=== PATIENT | female | born 1945 | race Caucasian/White ===

== ENCOUNTER → 2019-06-19 14:32 | Outpatient (CLI) | payer MEDICARE, SELFPAY ==
--- NOTE | ~2019-06-19 | MMUS_ITS ---
EXAMINATION: MM diagnostic isaías LT w mary lou, US breast LT limited HISTORY: Six-month follow-up for probably benign left breast mass TECHNIQUE: Craniocaudal, mediolateral, and mediolateral oblique 3-D tomosynthesis images of the left breast were performed and synthetic 2-D images were generated. CAD analysis was submitted and interpr eted. High resolution limited left breast ultrasound was performed. COMPARISON: 01/18/2019, 11/28/2018, 11/21/2018, 11/15/2017 BREAST PARENCHYMAL COMPOSITION: The breasts are almost entirely fatty. FINDINGS: MAMMOGRAPHIC FINDINGS: No persistent left breast mass is identified on today's examination. Scattered benign-appearing calci fications are present. There is no evidence of suspicious mass, calcification, or architectural disto rtion to suggest malignancy. There has been no suspicious interval change. ULTRASOUND: There is no evidence of focal abnormal solid or cystic lesion in the vicinity of the previously descr ibed ultrasound findings at the 12:00 location 7 cm from the nipple or the 3:00 location 15 cm from t he nipple. IMPRESSION: 1. No suspicious mammographic or sonographic findings. 2. Recommend routine screening mammography. BI-RADS Category 2: Benign finding(s). Reviewed, dictated and finalized at location A. IMPRESSION: 1. No suspicious mammographic or sonographic findings. 2. Recommend routine screening mammography. BI-RADS Category 2: Benign finding(s).
== END ==
PROVIDERS: PCP Family Medicine; Visit Provider Obstetrics & Gynecology
DX: R92.8 Other abnormal and inconclusive findings on diagnostic imaging of breast (principal)
CPT/HCPCS: 76642; 77061; 77065; G0279

== ENCOUNTER 2019-08-22 06:11 | Outpatient (CLI) | payer MEDICARE, SELFPAY ==
[2019-08-23 13:37] LABS: SARS-CoV-2 RNA PCR Negative
== END 2019-08-22 06:12 | disposition home or self-care (01) ==
LOC: ANHCOVIDDT 06:12
PROVIDERS: PCP Family Medicine; Visit Provider Internal Medicine Gastroenterology
DX: Z01.818 Encounter for other preprocedural examination (principal); Z11.59 Encounter for screening for other viral diseases
CPT/HCPCS: 87635; C9803; U0003

== ENCOUNTER 2019-08-24 02:32 | Day surgery (SDC) | payer MEDICARE, SELFPAY ==
[2019-08-21 10:04] VITALS: BMI 42.7
[2019-08-24 07:57] VITALS: BP 135/64; PULSE 84; RESP 18; TEMP 36.6; O2SAT 99; BMI 42.7
[2019-08-24] MEDS: LACTATED RINGERS 1,000 ML 150 ML IV CONT (08:14)
--- NOTE | 2019-08-24 08:22 | WPDANESEPPF ---
Anes - Initial Pre Proc Eval Procedure: Operation Date: 08/24/19 08:30 Proposed Procedures p Colonoscopy - Juan Modi MD Date/Time: 08/24/19 08:22 Surgeon: Juan Modi MD Pre Op Diagnosis: diarrhea, abdominal pain Patient Data Age: 73 Gender: F Height: 5 ft 6 in Weight: 120 kg Last Vital Signs Temp 36.6 C 08/24/19 07:57 Pulse 84 08/24/19 07:57 Resp 18 08/24/19 07:57 BP 135/64 08/24/19 07:57 Pulse Ox 99 08/24/19 07:57 Allergies Allergy/AdvReac Type Severity Reaction Status Date / Time No Known Allergies Allergy Unverified 08/24/19 07:51 Home Medications Medication Instructions Recorded Confirmed Type levetiracetam 500 mg tablet 500 mg PO Q12H 06/19/19 08/24/19 History divalproex 250 mg tablet,delayed 250 mg PO DAILY #90 tablet 06/26/19 08/24/19 Rx release escitalopram oxalate 20 mg tablet 20 mg PO DAILY #90 tablet 06/26/19 08/24/19 Rx levothyroxine 88 mcg tablet 88 mcg PO DAILY #90 tablet 06/26/19 08/24/19 Rx simvastatin 40 mg tablet 40 mg PO DAILY #90 tablet 06/26/19 08/24/19 Rx Patient hx anesthesia problems: none Family hx anesthesia problems: none PMFSH Past Medical History Medical History Chronic diarrhea CKD (chronic kidney disease), stage III Depression HLD (hyperlipidemia) Hypothyroidism Macular degeneration of both eyes Seizure disorder Social History Social History Gender identity (if verbalized by the patient): Female Anes - Eval Final PreProcedure Day of Procedure 08/24/19 08:22 Patient weight: morbidly obese Heart: regular rate and rhythm Lungs: clear to auscultation Airway: Mallampati scale class II Neurological: alert and oriented Last oral intake: >/= 8 hours ASA classification: III Emergent: no Anesthesia type and monitoring: general GIVS and standard monitoring Informed Consent: The patient's anesthetic plan and its attendant risks and benefits were discussed with the patient/family/POA. Questions were solicited and answers provided to the satisfaction of the patient/family/POA.
--- NOTE | 2019-08-24 08:46 | WPDGICN ---
Assessment and Plan Assessment and plan (1) Chronic diarrhea: Code(s): K52.9 - Noninfective gastroenteritis and colitis, unspecified Status: Acute Assessment and Plan: Chronic ongoing diarrhea. Somewhat suspicious for irritable bowel syndrome. Workup to date including cultures an IBD serology is negative. Plan is to try fiber is a bulk agent. Biopsy of the colon will be obtained during endoscopy to exclude microscopic colitis further recommendations may be given after endoscopy. (2) Depression: Code(s): F32.9 - Major depressive disorder, single episode, unspecified Status: Acute (3) Hypothyroidism: Code(s): E03.9 - Hypothyroidism, unspecified Status: Acute (4) Seizure disorder: Code(s): G40.909 - Epilepsy, unspecified, not intractable, without status epilepticus Status: Acute (5) CKD (chronic kidney disease), stage III: Code(s): N18.3 - Chronic kidney disease, stage 3 (moderate) Status: Acute GI Consult Note Consult date/time: 08/24/19 08:46 HPI: Roya Villaseñor is a 73 year old female Seen in evaluation at the request of Dr. Tony Duncan. Patient has history of diarrhea since March of 2019. Symptoms are worsened since June. She complains of diarrhea 3 times a day usually with poor control. She denies any bleeding. She denies any fever. She has no significant abdominal pain. Stool cultures have been negative. Including C difficile toxin. Serology for IBD was obtained found be normal as well. Patient is uncertain what medications she has been tried on in the recent past. Past medical history is significant for anxiety. Hypothyroidism. Family history noncontributory. Review of Systems Review of Systems: All systems reviewed & are unremarkable except as noted in HPI and below PMFSH Past Medical History Medical History Chronic diarrhea CKD (chronic kidney disease), stage III Depression HLD (hyperlipidemia) Hypothyroidism Macular degeneration of both eyes Seizure disorder Social History Social History Gender identity (if verbalized by the patient): Female Meds Home Medications and Allergies Home Medications Medication Instructions Recorded Confirmed Type levetiracetam 500 mg tablet 500 mg PO Q12H 06/19/19 08/24/19 History divalproex 250 mg tablet,delayed 250 mg PO DAILY #90 tablet 06/26/19 08/24/19 Rx release escitalopram oxalate 20 mg tablet 20 mg PO DAILY #90 tablet 06/26/19 08/24/19 Rx levothyroxine 88 mcg tablet 88 mcg PO DAILY #90 tablet 06/26/19 08/24/19 Rx simvastatin 40 mg tablet 40 mg PO DAILY #90 tablet 06/26/19 08/24/19 Rx Allergies Allergy/AdvReac Type Severity Reaction Status Date / Time No Known Allergies Allergy Unverified 08/24/19 07:51 Vital Signs Vital Signs - 24 hr 08/24/19 07:57 Temperature 36.6 C Pulse Rate 84 Respiratory Rate 18 Blood Pressure 135/64 Pulse Oximetry 99 Exam Narrative: Exam Narrative: Physical exam patient is alert. Vital signs are stable. HEENT exam unremarkable. Lungs are clear to auscultation and percussion. Heart is without murmur or extra sounds. Abdominal exam bowel sounds present soft nontender with no hepatosplenomegaly. Digital external rectal exam normal.
[2019-08-24 09:06] VITALS: BP 92/49; PULSE 66; RESP 23; O2SAT 98
[2019-08-24 09:16] VITALS: BP 98/54; PULSE 59; RESP 18; O2SAT 97
[2019-08-24 09:26] VITALS: BP 107/54; PULSE 60; RESP 16; O2SAT 98
== END 2019-08-24 09:52 | disposition home or self-care (01) ==
PROVIDERS: PCP Family Medicine; Visit Provider Internal Medicine Gastroenterology
PROC: 0DJD8ZZ Inspection of Lower Intestinal Tract, Via Natural or Artificial Opening Endoscopic (ICD-10-PCS; CPT 45378; principal; 2019-08-24 08:30)
DX: K52.9 Noninfective gastroenteritis and colitis, unspecified (principal); K57.30 Diverticulosis of large intestine without perforation or abscess without bleeding; K64.8 Other hemorrhoids; N18.3 Chronic kidney disease, stage 3 (moderate); G40.909 Epilepsy, unspecified, not intractable, without status epilepticus; E03.9 Hypothyroidism, unspecified; F32.9 Major depressive disorder, single episode, unspecified; E78.5 Hyperlipidemia, unspecified; H35.30 Unspecified macular degeneration; E66.01 Morbid (severe) obesity due to excess calories; Z68.41 Body mass index [BMI] 40.0-44.9, adult
CPT/HCPCS: 45380; 88305; J2704; J7120

== ENCOUNTER 2019-10-23 14:41 | Outpatient (CLI) | payer MEDICARE, SELFPAY ==
--- NOTE | ~2019-10-23 | MR_ITS ---
EXAMINATION: MR brain/brain stem wo con DATE: 10/23/2019 15:38 INDICATION: Tremors. TECHNIQUE: Magnetic resonance imaging (MRI) of the brain and brainstem was performed without intraven ous contrast. Sequences included sagittal and axial T1-weighted FSE, axial diffusion-weighted FS EPI, axial T2*-weighted GRE, axial T2-weighted FLAIR Propeller, and axial T2-weighted Propeller. Apparent diffusion coefficient (ADC) maps were created. COMPARISON: Head CT 04/07/2014 FINDINGS: There is volume loss of the cerebellum out of proportion to the rest of the brain. There ar e scattered areas of nonspecific increased T2-weighted signal intensity in the cerebral white matter. There is no intracranial hemorrhage, acute infarction, or abnormal intracranial mass lesion. The [place] tricles are normal in size. The paranasal sinuses are clear. There are likely changes of ocular lens replacement surgeries. The mastoid air cells are normal. IMPRESSION: 1. Moderate nonspecific cerebral white matter disease, which likely represents chronic small vessel i schemic disease. 2. Chronic mild cerebellar atrophy, likely secondary to chronic medication use. Reviewed, dictated and finalized at location A. IMPRESSION: 1. Moderate nonspecific cerebral white matter disease, which likely represents chronic small vessel ischemic disease. 2. Chronic mild cerebellar atrophy, likely secondary to chronic medication use.
== END 2019-10-23 14:42 | disposition home or self-care (01) ==
PROVIDERS: PCP Family Medicine; Visit Provider Psychiatry & Neurology Neurology
DX: R25.1 Tremor, unspecified (principal); R90.82 White matter disease, unspecified
CPT/HCPCS: 70551

== ENCOUNTER → 2019-11-27 10:43 | Outpatient (CLI) | payer MEDICARE, SELFPAY ==
--- NOTE | ~2019-11-27 | MM_ITS ---
EXAMINATION: MM screening isaías BI w mary lou HISTORY: Screening mammogram TECHNIQUE: Craniocaudal and mediolateral oblique 3-D tomosynthesis images were obtained and synthetic 2-D images were generated. CAD analysis was submitted and interpreted. COMPARISON: 06/29/2019 diagnostic left digital mammogram and limited left breast ultrasound 11/28/2018 diagnostic left digital mammogram and limited left breast ultrasound 11/21/2018 bilateral digital screening mammogram BREAST PARENCHYMAL COMPOSITION: FINDINGS: There are scattered bilateral benign calcifications. There is no evidence of suspicious mas s, calcification, or architectural distortion to suggest malignancy in either breast. There has been no suspicious interval change. IMPRESSION: 1. No mammographic evidence of malignancy. 2. Recommend routine screening mammography in one year. BI-RADS Category 2: Benign Reviewed, dictated and finalized at location A.
== END ==
PROVIDERS: PCP Family Medicine; Visit Provider Nurse Practitioner Obstetrics & Gynecology
DX: Z12.31 Encounter for screening mammogram for malignant neoplasm of breast (principal)
CPT/HCPCS: 77063; 77067

== ENCOUNTER 2020-06-01 14:08 | Emergency (ER) | payer MEDICARE, SELFPAY ==
--- NOTE | ~2020-06-01 | XR_ITS ---
EXAMINATION: XR chest 1V portable INDICATION: Shortness of breath TECHNIQUE: Portable AP chest at 1445 hours COMPARISON: None available FINDINGS: There are patchy opacities of the mid and lower lung zones. No pleural effusion or pneumoth orax is identified. The cardiomediastinal silhouette is normal. IMPRESSION: 1. Patchy airspace opacities of the mid and lower lung zones, consistent with atelectasis versus pneu monia. Reviewed, dictated and finalized at location A. GENCY PREPAREDNESS COORDINATOR IMPRESSION: 1. Patchy airspace opacities of the mid and lower lung zones, consistent with a telectasis versus pneumonia.
--- NOTE | ~2020-06-01 | CT_ITS ---
EXAMINATION: CTA chest PE protocol EXAM DATE: 06/01/2020 15:53 INDICATION: Shortness of breath. TECHNIQUE: Spiral CTA of the chest (pulmonary arteries) was performed with 100 cc Omnipaque 350 intr avenous contrast injection. Images were acquired during the pulmonary arterial phase. Coronal maxi mum intensity projection 3D-reconstructions were created by the technologist on dedicated workstation . Axial, coronal and sagittal reformatted images were reviewed. The dose-length product (DLP) for t his examination was 845.64 mGy-cm. The exposure was tailored according to patient size (auto mA exp osure control), and iterative reconstruction (ASIR) was used as additional dose reduction technique. Correlation is made to chest x-ray same day. FINDINGS: Pulmonary arteries are well opacified and without intraluminal filling defects. No thora cic aortic dissection. Scattered ill-defined bilateral peripheral predominant groundglass opacities, appearance is consistent with acute stage of COVID pneumonia. There are no pleural or pericardial e ffusions. Tracheobronchial tree is patent. There is no mediastinal, hilar or axillary lymphadenop athy. There is no pneumothorax. Heart normal in size. There is mild to moderate coronary arteri al calcification, arterial sclerosis. Cholelithiasis. There is thoracic spondylosis without osteobl astic or osteolytic lesions identified. IMPRESSION: 1. Small to moderate amount of scattered groundglass opacities throughout the lungs, probably COVID pneumonia. 2. No pulmonary emboli. Reviewed, dictated and finalized at location A. AL SERVICE DIRECTOR
[2020-06-01 14:11] VITALS: BP 139/86; PULSE 90; RESP 15; TEMP 36.2; O2SAT 92
[2020-06-01 14:26] VITALS: BP 118/96; PULSE 85; RESP 20; O2SAT 97
[2020-06-01 14:28] VITALS: O2SAT 97
--- NOTE | 2020-06-01 14:31 | ECG_ITS ---
Measurements Intervals [place] Rate: 85 P: 66 MO: 140 QRS: 40 QRSD: 83 T: 42 QT: 361 QTc: 429 Interpretive Statements SINUS RHYTHM EARLY PRECORDIAL R/S TRANSITION BASELINE ARTIFACT- I, III, V4 BORDERLINE ECG Electronically Signed On 06-01-2020 14:47:32 CONTACT WORKER L[employer]OGR[employer]HY by Jaime Velez D.O.
--- NOTE | 2020-06-01 14:33 | ED.SOB ---
HPI - SOB/Dyspnea General Chief Complaint: Shortness of Breath/Dyspnea Stated Complaint: cough, decreased appetite Time Seen by Provider: 06/01/20 14:19 Source: patient, RN notes reviewed and old records reviewed History of Present Illness HPI Narrative: 74-year-old female presents to emergency department for shortness of breath for the past week. Patient states she has short of breath with exertion. She states she has had this in the past before, diagnosed with bronchitis. She also states she has been feeling weak/fatigued for the past week. No fever. She does report some chills. No chest pain. No abdominal pain. No nausea or vomiting. Related Data Home Medications Medication Instructions Recorded Confirmed escitalopram oxalate 20 mg PO DAILY 06/01/20 06/01/20 Allergies Allergy/AdvReac Type Severity Reaction Status Date / Time No Known Allergies Allergy Verified 06/01/20 14:22 Review of Systems Review of Systems: Narrative: CONSTITUTIONAL: Denies fever, reports chills. EYES: Denies visual changes, redness, or discharge. ENT: Denies rhinorrhea, congestion, sore throat, or otalgia. CARDIOVASCULAR: Denies chest pain, palpitations, or edema. RESPIRATORY: Reports shortness of breath with exertion. GASTROINTESTINAL: Denies abdominal pain, nausea, vomiting, or diarrhea. GENITOURINARY: Denies dysuria or hematuria. SKIN: Denies rash or itching. MUSCULOSKELETAL: Denies back pain, joint pain, or myalgia. NEUROLOGIC: Denies headache, numbness, dizziness, or weakness. PSYCHIATRIC: Denies anxiety or depression. All systems reviewed & are unremarkable except as noted in HPI and below (ROS) [facility] Past Medical History Medical History (Updated 06/01/20 @ 16:29 by Emiliano Madrigal DO) Chronic diarrhea CKD (chronic kidney disease), stage III Depression HLD (hyperlipidemia) Hypothyroidism Macular degeneration of both eyes Seizure disorder Family History Family History Father Family history of malignant neoplasm of stomach Other Diabetes mellitus Family history of congestive heart failure Family history of kidney disease Social History Social History Smoking status: Never smoker Alcohol intake: never Gender identity (if verbalized by the patient): Female Exam Narrative: Exam Narrative: GENERAL: Well-appearing, well-nourished, and in no acute distress. HEAD: Normocephalic, atraumatic. EYES: PERRLA and EOMI. ENT: Nares clear, no rhinorrhea or epistaxis. Mucous membranes moist. NECK: Supple. CHEST: Clear to auscultation. No respiratory distress. HEART: Regular rate and rhythm. No murmur heard. Normal peripheral pulses. ABDOMEN: Soft, nontender, nondistended, normal active bowel sounds. EXTREMITIES: Normal range of motion. 1+ pitting edema lower extremities bilaterally SKIN: Warm, dry, no rash. NEURO: No focal deficits. Alert and oriented x3. PSYCH: Normal mood and affect. Course Course Emergency Course: 1620 -reevaluated patient, no new complaints. Patient satting 100% on room air. CT scan shows no PE, however concern for COVID-19 pneumonia. Counseled patient to take Tylenol and Motrin/ibuprofen as needed for pain. Follow-up with primary care physician within 1 week. Quarantine herself for another week. Return to emergency department if symptoms persist, worsen, or other concerns. Vital Signs Vital signs: Vital Signs Temperature 36.2 C L 06/01/20 14:11 Pulse Rate 90 06/01/20 14:11 Respiratory Rate 15 06/01/20 14:11 Blood Pressure 139/86 06/01/20 14:11 Pulse Oximetry 92 06/01/20 14:11 Temperature 36.2 C L 06/01/20 14:11 Pulse Rate 80 06/01/20 16:47 Respiratory Rate 20 06/01/20 16:47 Blood Pressure 120/99 H 06/01/20 16:47 Pulse Oximetry 100 06/01/20 16:47 MDM - SOB/Dyspnea Medical Records Attestation: I reviewed the patient's medical records. Lab D
[2020-06-01] MEDS: ALBUTEROL SULFATE (*SP) AEROSOL 1 PUFF 4 PUFF INHALATION (14:48)
[2020-06-01 14:50] LABS: Basophils Percent Auto 0.4 % (0.2-1.2); Eosinophils Absolute Auto 0.1 K/mm3 (0-0.3); Eosinophils Percent Auto 1.1 % (0-4.4); Hematocrit 45.4 % (37.0-47.0); Hemoglobin 15.1 g/dL (12.0-15.0); Immature Granulocyte Absolute 0.02 K/mm3 (0.00-0.031); Immature Granulocyte Percent A 0.4 % (0-0.5); Lymphocytes Absolute Auto 1.95 K/mm3 (0.9-3.2); Lymphocytes Percent Auto 34.3 % (18.3-44.2); Mean Corpuscular HGB Conc 33.3 g/dl (32-36); Mean Corpuscular Hemoglobin 29.7 pg (26-34); Mean Corpuscular Volume 89.4 fl (80-100); Mean Platelet Volume 11.3 fl (7.4-10.4); Monocytes Absolute Auto 0.4 K/mm3 (0.1-0.6); Monocytes Percent Auto 6.9 % (2.6-8.5); Neutrophils Absolute Auto 3.3 K/mm3 (1.3-6.7); Neutrophils Percent Auto 56.9 % (45.5-73.1); Platelet Count Result 196 k/mm3 (150-375); Red Blood Count 5.08 M/mm3 (4.2-5.4); Red Cell Distribution Width 13.2 % (11.5-14.5); White Blood Count 5.7 K/mm3 (4.5-10.0)
[2020-06-01 15:03] LABS: Alanine Aminotransferase 19 U/L (4-35); Alkaline Phosphatase 76 U/L (38-126); Anion Gap 8 mmol/L (8-16); Aspartate Amino Transferase 31 U/L (14-36); Bilirubin,Total 0.7 mg/dL (0.2-1.3); Blood Urea Nitrogen 32 mg/dL (7-17); Calcium 9.4 mg/dL (8.4-10.2); Carbon Dioxide 25 mmol/L (22-30); Chloride 104 mmol/L (98-107); Estimated CRCL calculation 49 ml/min; Estimated Glomerular Filt Rate 44; Glucose 114 mg/dL (65-105); Sodium 137 mmol/L (137-145)
[2020-06-01 15:13] LABS: NT Pro B Type Natriuretic Pept 75 PG/ML (5-100); Troponin I < 0.012 ng/mL (0.000-0.034)
[2020-06-01 15:18] LABS: CRP 8.1 mg/dL (<1.0); Lactate Dehydrogenase 574 U/L (313-618); Procalcitonin 0.2 ng/mL
[2020-06-01 16:18] VITALS: BP 122/105; PULSE 88; RESP 20; O2SAT 97
[2020-06-01 16:47] VITALS: BP 120/99; PULSE 80; RESP 20; O2SAT 100
[2020-06-01 22:49] LABS: SARS-CoV-2 RNA PCR Positive
== END 2020-06-01 16:50 | disposition home or self-care (01) ==
PROVIDERS: Emergency Provider Emergency Medicine; PCP Family Medicine
DX: U07.1 COVID-19 (principal); J12.82 Pneumonia due to coronavirus disease 2019; N18.30 Chronic kidney disease, stage 3 unspecified; E78.5 Hyperlipidemia, unspecified; E03.9 Hypothyroidism, unspecified; H35.30 Unspecified macular degeneration; G40.909 Epilepsy, unspecified, not intractable, without status epilepticus; R94.31 Abnormal electrocardiogram [ECG] [EKG]; R79.89 Other specified abnormal findings of blood chemistry
CPT/HCPCS: 36415; 71045; 71275; 80053; 82728; 83615; 83880; 84145; 84484; 85025; 86140; 93005; 99284; A9270; C9803; Q9967; U0003; U0005

== ENCOUNTER → 2020-12-13 14:49 | Outpatient (CLI) | payer MEDICARE, SELFPAY ==
--- NOTE | ~2020-12-13 | MM_ITS ---
EXAMINATION: MM screening isaías BI w mary lou HISTORY: Screening TECHNIQUE: Craniocaudal and mediolateral oblique 3-D tomosynthesis images were obtained and synthetic 2-D images were generated. CAD analysis was submitted and interpreted. COMPARISON: Comparison to multiple prior studies sequentially, with oldest reviewed study dated 09/2017. BREAST PARENCHYMAL COMPOSITION: The breasts are almost entirely fatty. FINDINGS: There is no evidence of suspicious mass, calcification, or architectural distortion to sugg est malignancy in either breast. There has been no suspicious interval change. IMPRESSION: 1. No mammographic evidence of malignancy. 2. Recommend routine screening mammography in one year. BI-RADS Category 1: Negative Reviewed, dictated and finalized at location A.
== END ==
PROVIDERS: Visit Provider Obstetrics & Gynecology
DX: Z12.31 Encounter for screening mammogram for malignant neoplasm of breast (principal)
CPT/HCPCS: 77063; 77067

== ENCOUNTER → 2021-12-30 13:58 | Outpatient (CLI) | payer MEDICARE, SELFPAY ==
--- NOTE | ~2021-12-30 | MM_ITS ---
EXAMINATION: MM screening [facility] BI w mary lou HISTORY: Screening mammogram TECHNIQUE: Craniocaudal and mediolateral oblique 3-D tomosynthesis images were obtained and synthetic 2-D images were generated. CAD analysis was submitted and interpreted. COMPARISON: 12/13/2020, 11/27/2019, 06/19/2019 BREAST PARENCHYMAL COMPOSITION: The breasts are almost entirely fatty. FINDINGS: Scattered benign-appearing calcifications are present. There is no suspicious mass, calcifi cation, or architectural distortion to suggest malignancy in either breast. There has been no suspici ous interval change. IMPRESSION: 1. No mammographic evidence of malignancy. 2. Recommend routine screening mammography in one year. BI-RADS Category 2: Benign finding(s). Reviewed, dictated and finalized at location A.
== END ==
PROVIDERS: PCP Family Medicine; Visit Provider Nurse Practitioner Obstetrics & Gynecology
DX: Z12.31 Encounter for screening mammogram for malignant neoplasm of breast (principal)
CPT/HCPCS: 77063; 77067

== ENCOUNTER 2022-07-28 13:11 | Outpatient (CLI) | payer MEDICARE, SELFPAY ==
--- NOTE | ~2022-07-28 | DEXA_ITS ---
Bone Density Report Name: LASHAY CULVER Age: 76 Sex: Female Ethnicity: White Date of : 1945 Indication: postmenopausal; screening for osteoporosis; height loss; seizure disorder; Referring Provider: JAZMINE CORBIN Study: Bone densitometry was performed. Exam Date: July 28, 2022 Accession number: [id number] Bone Density: Region BMD T-score Z-score Classification AP Spine(L1-L4) 1.202 1.4 3.8 Normal Femoral Neck (Left) 0.754 -0.9 1.3 Normal Total Hip (Left) 0.880 -0.5 1.3 Normal Femoral Neck (Right) 0.725 -1.1 1.0 Osteopenia Total Hip (Right) 0.824 -1.0 0.8 Normal Total Hip Mean 0.852 -0.8 1.1 Normal World Health Organization criteria for BMD impression classify patients as: Normal (T-score at or above -1.0), Osteopenia (T-score between -1.0 and -2.5), or Osteoporosis (T-score at or below -2.5). 10-year Fracture Risk(1): Major Osteoporotic Fracture 8.7% Hip Fracture 1.3% Reported Risk Factors: [place] (), Neck BMD=0.725, BMI=44.5 Input outside FRAX(R) limits. Adjusted to:Srmxyf=515 kg (1) FRAX(R) Version 3.08. Fracture probability calculated for an untreated patient. Fracture probability may be lower if the patient has received treatment. Clinical Information Provided by Patient: Has used the following medications: Vitamin D Has the following medical conditions: Any Seizure Disorders Patient maximum height was 69 No regular weight bearing exercise Drinks caffeinated beverages Onset of menses at age 11 Number of children 0 Impression: The patient has low bone mass, based on the Right Femoral Neck T-score. The patient has an estimated ten-year risk of hip fracture of 1.3% and an estimated ten-year risk of major fracture of 8.7%, based on the WHO FRAX algorithm. Discussion: BONE DENSITY IS LOW AT ONE OR MORE SKELETAL SITES. This patient's lowest T-score is low at one or more skeletal sites. It meets the World Health Organization's (WHO) criteria for ?low bone mass? (T-score between -1.0 and -2.5). The patient's 10-year risk of fracture as calculated by FRAX is less than the threshold where pharmacological therapy is recommended by the National Osteoporosis Foundation (NOF). However, all treatment decisions require clinical judgment and consideration of individual patient factors, including patient preferences, comorbidities, previous drug use, risk factors not captured in the FRAX model (e.g., frailty, falls, vitamin D deficiency, increased bone turnover, interval significant decline in bone density) and possible under or overestimation of fracture risk by FRAX. The patient should follow a healthful lifestyle (good nutrition with adequate calcium and vitamin D, and appropriate weight-bearing exercise). Follow-Up: Consider repeating this study in 2 to 3 years
== END 2022-07-28 13:12 | disposition home or self-care (01) ==
PROVIDERS: PCP Family Medicine; Visit Provider Family Medicine
DX: Z78.0 Asymptomatic menopausal state (principal); M85.851 Other specified disorders of bone density and structure, right thigh
CPT/HCPCS: 77080

== ENCOUNTER 2023-07-12 10:14 | Outpatient (CLI) | payer MEDICARE, SELFPAY ==
--- NOTE | ~2023-07-12 | XR_ITS ---
Clinical Indication: Cough PA and lateral views of the chest: Comparison: None Findings: The lungs are clear, without evidence of focal consolidation or pleural effusion. Cardiome diastinal silhouette is within normal limits. Bones and soft tissues are unremarkable. Impression: Normal chest. Reviewed, dictated and finalized at location . Impression: Normal chest.
== END 2023-07-12 10:15 ==
LOC: MICIMG 10:16
PROVIDERS: PCP Family Medicine; Visit Provider Physician Assistant
DX: R05.9 Cough, unspecified (principal); R06.02 Shortness of breath
CPT/HCPCS: 71046

== ENCOUNTER 2023-08-23 12:38 | Outpatient (CLI) | payer MEDICARE, SELFPAY ==
--- NOTE | ~2023-08-23 | MM_ITS ---
EXAMINATION: MM screening isaías BI w mary lou HISTORY: Screening mammogram TECHNIQUE: Craniocaudal and mediolateral oblique 3-D tomosynthesis images were obtained and synthetic 2-D images were generated. CAD analysis was submitted and interpreted. COMPARISON: 12/30/2021, 12/13/2020 bilateral screening mammogram examinations BREAST PARENCHYMAL COMPOSITION: The breasts are almost entirely fatty. FINDINGS: There is no evidence of suspicious mass, calcification, or architectural distortion to sugg est malignancy in either breast. There has been no suspicious interval change. IMPRESSION: 1. No mammographic evidence of malignancy. 2. Recommend routine screening mammography in one year. BI-RADS Category 1: Negative Reviewed, dictated and finalized at location A.
== END 2023-08-23 12:39 ==
LOC: MICIMG 12:39
PROVIDERS: PCP Nurse Practitioner Obstetrics & Gynecology; Visit Provider Nurse Practitioner Obstetrics & Gynecology
DX: Z12.31 Encounter for screening mammogram for malignant neoplasm of breast (principal)
CPT/HCPCS: 77063; 77067

== ENCOUNTER 2024-01-18 08:58 | Outpatient (CLI) | payer MEDICARE, SELFPAY ==
--- NOTE | ~2024-01-18 | US_ITS ---
Limited Abdominal Sonogram: Real-time sonographic imaging of the right upper quadrant was performed. Clinical History: Abdominal pain Findings: The liver appears normal with no evidence of bile duct dilatation. There is a 9 mm echogen ic mass in the liver. Main portal vein demonstrates normal direction of flow. The gallbladder is prob ably completely filled with stones with wall echo shadow complex thickening. The common bile duct preston sures 4 mm. The visualized pancreas, aorta, and IVC are unremarkable. Impression: 9 mm echogenic hepatic mass, slightly small hemangioma. Consider MR to attempt to further characteriz e, or possibly follow-up ultrasound in 6 months to assess for stability. Probable cholelithiasis with gallbladder completely filled with stones. Correlate for any prior histo ry of cholecystectomy. Reviewed, dictated and finalized at [facility]. Impression: 9 mm echogenic hepatic mass, slightly small hemangioma. Consider MR to attempt to further characterize, or possibly follow-up ultrasound in 6 months to assess for stability. Probable cholelithiasis with gallbladder completely filled with stones. Correla te for any prior history of cholecystectomy.
== END 2024-01-18 08:59 | disposition home or self-care (01) ==
PROVIDERS: PCP Family Medicine; Visit Provider Family Medicine
DX: R16.0 Hepatomegaly, not elsewhere classified (principal); D18.09 Hemangioma of other sites
CPT/HCPCS: 76705